=== PATIENT | male | born 1975 ===

== ENCOUNTER 2017-07-11 22:09 | Emergency (ER) | payer OTHER ==
[2017-07-11 22:18] VITALS: BP 118/78; PULSE 88; RESP 20; TEMP 98; O2SAT 98
--- NOTE | 2017-07-11 22:23 | ED PDOC ---
HPI: General Adult Time Seen by Provider: 07/11/17 22:18 Chief Complaint (Nursing): Abnormal Skin Integrity History Per: Patient Additional Complaint(s): Pt. states earlier today while at work he accidentally cut himself with a crepe box tender on his L hand. Denies numbness, tingling, other injury. Past Medical History Reviewed: Historical Data, Nursing Documentation, Vital Signs Vital Signs: Last Vital Signs Temp 98 F 07/11/17 22:16 Pulse 88 07/11/17 22:16 Resp 20 07/11/17 22:16 BP 118/78 07/11/17 22:16 Pulse Ox 98 07/11/17 22:23 - Family History Family History: States: No Known Family Hx - Allergies Allergies/Adverse Reactions: Allergies Allergy/AdvReac Type Severity Reaction Status Date / Time No Known Allergies Allergy Verified 07/11/17 22:15 Review of Systems ROS Statement: Except As Marked, All Systems Reviewed And Found Negative Physical Exam - Physical Exam Appears: Positive for: Well, Non-toxic, No Acute Distress Skin: Positive for: Normal Color, Warm. Negative for: Rash Pulses-Radial (L): 2+ Extremity: Positive for: Normal ROM (FROM actively of all digits on L hand), Other (L hand on dorsal surface with 2 inch laceration between 1st and 2nd MCP without active bleeding or tendon exposure) Neurologic/Psych: Positive for: Alert, Oriented - ECG O2 Sat by Pulse Oximetry: 98 Procedures - Time-Out Type of Procedure: Laceration repair Site of Procedure: L hand Correct Procedure: Yes Correct Site Marked: Yes PA/Tech: Malaika - Laceration/Wound Repair Laceration repair Wound Length (cm): 5 Wound's Depth, Shape: superficial, linear Wound Explored: clean Irrigated w/ Saline (ccs): 400 Betadine Prep?: Yes Anesthesia: 1% Lidocaine Volume Anesthetic (ccs): 6 Wound Repaired With: Sutures Suture Size/Type: 5:0, proline Number of Sutures: 9 Wound Complexity: Simple Disposition - Clinical Impression Clinical Impression: Hand laceration - Patient ED Disposition Is Patient to be Admitted: No - Disposition Referrals: Theresa Burton [Outside] Disposition: Routine/Home Disposition Time: 23:08 Condition: STABLE Additional Instructions: Suture removal in 7 days. Instructions: Care For Your Stitches (ED), Laceration (ED) Forms: [employer] (Surinamese) Print Language: CONGOLESE
== END 2017-07-11 23:45 | disposition home or self-care (01) ==
LOC: H.ER 22:09
DX: S61.421A Laceration with foreign body of right hand, initial encounter (principal); W26.8XXA Contact with other sharp object(s), not elsewhere classified, initial encounter; Y99.0 Civilian activity done for income or pay